=== PATIENT | female | born 1975 | race Caucasian/White ===

== ENCOUNTER → 2018-10-03 | Outpatient (CLI) | payer BC ==
[~2018-10-03] MED LIST: ASPIRIN E.C. 8181 MG PO; BYETTA SQ; DIABETA5 MG PO; LANTUS SOLOS100 U/ML SC; LISINOPRIL10 MG PO; TRICOR48 MG PO
== END ==
LOC: MC.RAD 09:47
DX: Z12.31 Encounter for screening mammogram for malignant neoplasm of breast (principal)

== ENCOUNTER 2021-01-12 16:00 | Outpatient (RCR) | payer OTHER ==
[2021-01-03 16:51] VITALS: BP 133/86; PULSE 107; TEMP 97.8
[2021-01-05 16:02] VITALS: BP 103/63; PULSE 114; TEMP 97.7
[2021-01-07 16:46] VITALS: BP 108/69; PULSE 100; TEMP 98
[2021-01-10 16:02] VITALS: BP 139/84; PULSE 99; TEMP 98.1
[~2021-01-12] VITALS: Ht 167.6 cm; Wt 109.3 kg
[~2021-01-12 16:00] MED LIST changes: +GLUCOPHAGE1000 MG PO; +JANUVIA 100MG100 MG PO; +LEVEMIR FLEX100 U/ML SQ; +LIPITOR 40MG TA40 MG PO; -LISINOPRIL10 MG PO; +LOPID 600M600 MG/TAB PO; +NOVOLOG 100U100 U/M1 SQ; +OMEGA-3 1000 MG1 CAP PO; +ONE-A-DAY ESSE1 EACH PO; +TRULICITY1.5 MG/0.5 SQ; +VITAMIN C500 MG PO; +ZESTRIL 20MG TA20 MG PO
[2021-01-12 16:48] VITALS: BP 118/75; PULSE 93; TEMP 98
== END 2021-01-12 17:08 ==
LOC: EUO 16:00
DX: D50.0 Iron deficiency anemia secondary to blood loss (chronic) (principal)
CPT/HCPCS: J1756